=== PATIENT | female | born 2000 | race Two or more races ===

== ENCOUNTER 2021-09-30 14:52 | Inpatient (IN) | payer MEDICAID, OTHER ==
[~2021-09-30] VITALS: Ht 152.4 cm; Wt 90.7 kg
[2021-09-30] MEDS ORDERED: DERMOPLAST 60ML BOTTLE TOP PRN (20:15)
[2021-09-30] MEDS ORDERED: PHISODERM TOP SOLN 240ML BTL TOP PRN (20:15)
[2021-09-30] MEDS ORDERED: PENICILLIN G POT 5MIL/D5 50ML 50 ML IV ONE (20:15)
[2021-09-30] MEDS ORDERED: PROMETHAZINE HCL 25 MG/ML 1ML IV PRN (20:15)
[2021-09-30] MEDS ORDERED: LACTATED RINGER'S 1,000 ML IV SCH ×2 (20:15→21:30)
[2021-09-30] MEDS ORDERED: WITCH HAZEL-GLYCERIN PAD TOP PRN (20:15)
[2021-09-30] MEDS ORDERED: BUTORPHANOL TARTRATE 2 MG/1 ML VIAL IV PRN ×2 (20:15)
[2021-09-30] MEDS ORDERED: LIDOCAINE 2%HCL (LOCAL ANESTH.) INJ 10ml MDV IJ PRN (20:15)
[2021-09-30] MEDS ORDERED: LACT. RINGERS/OXYTOCIN 20UNITS 500 ML IV ONE ×2 (20:30→21:00)
[2021-09-30 20:43] LABS: Basophils # (auto) 0 10 ^3/uL (0-0.2); Basophils % (auto) 0.3 % (0.0-2.0); Eosinophils # (auto) 0.1 10 ^3/uL (0-0.8); Eosinophils % (auto) 0.7 % (0.0-7.0); Hematocrit 36.1 % (36.0-46.0); Lymphocytes # (auto) 1.9 10 ^3/uL (0.4-5.4); Lymphocytes % (auto) 21.3 % (10.0-50.0); Mean Corpuscular Hemoglobin 30.8 pg (28.0-32.0); Mean Corpuscular Hgb Conc. 33.4 g/dL (32.0-36.0); Mean Corpuscular Volume 92.2 fL (80.0-100.0); Monocytes # (auto) 0.7 10 ^3/uL (0-1.3); Monocytes % (auto) 7.5 % (0.0-12.0); Neutrophils # (auto) 6.3 10 ^3/uL (1.6-8.6); Neutrophils % (auto) 70.2 % (37.0-80.0); Nucleated Red Blood Cells % 0.1 %; Red Blood Cells 3.91 10^6/uL (4.0-5.20); Red Cell Distribution Width 16.3 % (11.8-14.3); White Blood Cell 8.9 10^3/uL (4.4-10.8)
[2021-09-30 20:58] LABS: Albumin 2.8 g/dL (3.4-5.0); BUN/Creatinine Ratio 14.6; Calcium 9.1 mg/dL (8.5-10.1)
[2021-09-30 20:59] LABS: INR 0.93 (0.9-1.15); Partial Thromboplastin Time 25.4 sec (23.6-33.0)
[2021-09-30 21:07] LABS: Bilirubin, Total 0.2 mg/dL (0.2-1.0); Total Protein 7.2 g/dL (6.4-8.2)
[2021-09-30 22:06] LABS: Urine Bacteria FEW /hpf (None Seen); Urine Blood 2+ /uL (Negative); Urine WBC 12 /hpf (0 - 5)
[2021-09-30 22:07] LABS: Alcohol, Urine < 3.0 mg/dL (0-10); Amphetamine Screen, Urine NEGATIVE (NEGATIVE); Barbiturate Scree,Urine NEGATIVE (NEGATIVE); Benzodiazephine Screen, Urine NEGATIVE (NEGATIVE); Cannabinoid Screen, Urine NEGATIVE (NEGATIVE); Cocaine Screen, Urine NEGATIVE (NEGATIVE); Opiate Scree,Urine NEGATIVE (NEGATIVE); Phencyclidine Screen, Urine NEGATIVE (NEGATIVE)
[2021-09-30] MEDS ORDERED: ROPIVACAINE HCL 200 ML EPI SCH ×2 (22:15→23:30)
[2021-09-30] MEDS ORDERED: LIDOCAINE HCL 2 %PF INJ 10ML AMP IJ ONE (22:15)
[2021-09-30] MEDS ORDERED: NALOXONE HCL 0.4 MG/ML VIAL IV ONE ×2 (22:15→23:45)
[2021-09-30] MEDS ORDERED: ePHEDrine SULFATE 50 MG/ML AMP IV ONE ×2 (22:15→23:45)
[2021-09-30] MEDS ORDERED: fentaNYL CITRATE 100 MCG/2 ML VL IV ONE (22:45)
[2021-09-30] MEDS ORDERED: SODIUM CHLORIDE 0.9% 500 ML IV PRN (23:45)
[2021-09-30] MEDS ORDERED: LACTATED RINGER'S 500 ML IV ONE (23:45)
[2021-10-01] MEDS: PENICILLIN G POTASSIUM 2,500,000 UNITS in D5W 5% 50 ML IV SCH ×2 (00:11→03:45)
[2021-10-01] MEDS ORDERED: TERBUTALINE SULFATE 1 MG/ML 1ML VIAL SC PRN (01:30)
[2021-10-01] MEDS ORDERED: LACT. RINGERS/OXYTOCIN 20UNITS 1,000 ML IV SCH (01:30)
[2021-10-01] MEDS ORDERED: ONDANSETRON ODT 4 MG TAB PO PRN (06:45)
[2021-10-01] MEDS: IBUPROFEN 600 MG TAB PO PRN ×3 (07:02→23:43)
[2021-10-01 07:05] VITALS: BP 112/56
[2021-10-01] MEDS: ACETAMINOPHEN 325 MG TAB PO PRN ×2 (08:48→20:44)
[2021-10-01 10:47] VITALS: BP 97/59
[2021-10-01 14:43] VITALS: BP 104/60
[2021-10-01 18:45] VITALS: BP 99/59
[2021-10-01 23:00] VITALS: BP 97/52
[2021-10-02 03:00] VITALS: BP 90/44
[2021-10-02] MEDS: ACETAMINOPHEN 325 MG TAB PO PRN (06:04)
[2021-10-02 07:00] VITALS: BP 100/58
[2021-10-02 08:06] LABS: RPR Non Reactive (Non Reactive)
== END 2021-10-02 10:38 | disposition home or self-care (01) | DRG 560 ==
LOC: EDBD 14:52 → UNDOADMOB 14:52 → LDRP 14:52 → OBSVTOIN 20:09 → LDRP 20:38
PROVIDERS: ADMIT Obstetrics & Gynecology; ATTEND Obstetrics & Gynecology
PROC: 10E0XZZ Delivery of Products of Conception, External Approach (ICD-10-PCS; principal; 2021-10-01)
PROC: 3E0R3BZ Introduction of Anesthetic Agent into Spinal Canal, Percutaneous Approach (ICD-10-PCS; 2021-10-01)
PROC: 00HU33Z Insertion of Infusion Device into Spinal Canal, Percutaneous Approach (ICD-10-PCS; 2021-10-01)
DX: O69.81X0 Labor and delivery complicated by cord around neck, without compression, not applicable or unspecified (principal); Z37.0 Single live birth; O99.824 Streptococcus B carrier state complicating childbirth; Z20.822 Contact with and (suspected) exposure to COVID-19; Z3A.39 39 weeks gestation of pregnancy; Z90.49 Acquired absence of other specified parts of digestive tract; Z83.3 Family history of diabetes mellitus
CPT/HCPCS: 36415; 59025; 59409; 62282; 80053; 80307; 81001; 81002; 85025; 85610; 85730; 86592; 86850; 86900; 86901; 94760; 94762; 96360; 96361; 96365; 96366; G0378; J2001; J2540; J2590; J7060